=== PATIENT | female | born 1995 | race Caucasian/White ===

== ENCOUNTER 2020-10-19 21:09 | Emergency (ER) | payer SELFPAY ==
[~2020-10-19] VITALS: Ht 149.9 cm; Wt 36.5 kg
[2020-10-19 21:21] VITALS: Ht 149.9 cm; Wt 36.5 kg
[2020-10-19 22:50] LABS: BASOPHIL % 0.2 % (0.2-1.3); PLATELET COUNT 196 x10^3mcL (179-408); RED CELL DISTRIBUTION WIDTH 13.4 % (12.3-17.7)
[2020-10-19 22:58] LABS: CALCIUM 8.6 mg/dL (8.5-10.1); CARBON DIOXIDE 21.7 mmol/L (21-32); CHLORIDE SERUM 103 mmol/L (98-107); CREATININE SERUM 0.7 mg/dL (0.6-1.0); GFR1 > 60 mL/min; GLUCOSE SERUM 94 mg/dL (74-106); SODIUM SERUM 139 mmol/L (136-145)
[2020-10-19 23:02] LABS: ALKALINE PHOSPHATASE 60 U/L (46-116); ALT/SGPT 20 U/L (14-59); AST/SGOT 17 U/L (15-37); BILIRUBIN TOTAL 1.5 mg/dL (0.20-1.00); LIPASE 44 IU/L (73-393); TOTAL PROTEIN, SERUM 7.3 g/dL (6.4-8.2)
[2020-10-19] MEDS ORDERED: ZOF4 PO (23:50)
[2020-10-20 00:25] VITALS: BP 100/50
== END 2020-10-20 00:25 | disposition home or self-care (01) ==
LOC: ED 21:09
PROVIDERS: Emergency Medicine
DX: K29.70 Gastritis, unspecified, without bleeding (principal)
CPT/HCPCS: J2405; J3490